=== PATIENT | female | born 1985 ===

== ENCOUNTER 2019-05-26 08:36 | Outpatient (CLI) | payer OTHER ==
--- NOTE | 2019-05-26 10:52 | ULT ---
PELVIC ULTRASOUND INCLUDING TRANSABDOMINAL AND TRANSVAGINAL AND VASCULAR DUPLEX WITH COLOR AND SPECTR AL DOPPLER IMAGING: HISTORY: Ovarian cyst. FINDINGS: Uterus measures 11.8 x 5.1 x 6 cm and endometrium 0.8 cm. Right ovary measures 3.3 x 2.2 x 1.7 cm, co ntaining a 0.8 x 1.1 x 1.1 follicle cyst. Left ovary measures 1.6 x 1.7 x 2.9 cm, containing a 1.2 x 1.7 x 1.8 cm follicle cyst. Incidental nabothian cyst. No abscess or abnormal fluid collection. Vascular flow is documented to both ovaries. No evidence for ovarian torsion. IMPRESSION: Small bilateral ovarian cysts, as above. No evidence for new process. No old examinations available f or comparison. POS: [facility]
== END 2019-05-26 08:37 | disposition home or self-care (01) ==
LOC: BICULT 08:36
PROVIDERS: ATTEND Family Medicine
DX: N83.201 Unspecified ovarian cyst, right side (principal); N83.202 Unspecified ovarian cyst, left side
CPT/HCPCS: 76856